=== PATIENT | male | born 1965 | race Caucasian/White ===

== ENCOUNTER 2019-01-11 11:32 | Emergency (ER) | payer SELFPAY ==
[~2019-01-11] VITALS: Ht 167.6 cm; Wt 77.1 kg
[2019-01-11 11:45] VITALS: BP 138/88; Ht 167.6 cm; Wt 77.1 kg
== END 2019-01-11 13:56 | disposition left against medical advice (07) ==
LOC: ED 11:32
DX: Z53.21 Procedure and treatment not carried out due to patient leaving prior to being seen by health care provider (principal)